=== PATIENT | male | born 1960 | race Caucasian/White ===

== ENCOUNTER 2018-04-03 02:02 | Inpatient (IN) | payer OTHER ==
[~2018-04-03] VITALS: Ht 167.6 cm; Wt 69.9 kg
[2018-04-03 02:05] VITALS: BP 137/90
--- NOTE | 2018-04-03 02:08 | NUR ---
TO BED # 4 AMBULATORY , REPORT GIVEN TO ALEJO ALVA
--- NOTE | 2018-04-03 02:13 | NUR ---
Dr. Lafleur evaluating patient at bedside.
[2018-04-03] MEDS ORDERED: NACL 0.9% 1,000 ML IV ONE (02:20)
[2018-04-03] MEDS ORDERED: ONDANSETRON 4 MG/2 ML VIAL IVP ONE (02:20)
[2018-04-03] MEDS ORDERED: KETOROLAC 30 MG/ML VIAL IVP ONE (02:20)
[2018-04-03 02:50] LABS: ALBUMIN 4.6 g/dL (3.4-5.0); ANION GAP 12.8 (8-16); CARBON DIOXIDE 26.4 mmol/L (21-32); CREATININE 1.4 mg/dL (0.7-1.3); POTASSIUM 4.2 mmol/L (3.5-5.1); TOTAL BILIRUBIN 0.5 mg/dL (0.0-1.0)
--- NOTE | 2018-04-03 03:01 | NUR ---
PT TAKEN TO CT
--- NOTE | 2018-04-03 03:12 | NUR ---
PT RETURN FROM CT
[2018-04-03 03:18] LABS: BASOPHILS % (AUTO) 0.1 % (0.0-2.0); EOSINOPHILS % (AUTO) 0.1 % (0.0-4.0); HEMATOCRIT 44.5 % (36-52); HEMOGLOBIN 15.1 g/dL (12.0-18.0); LYMPHOCYTES # (AUTO) 0.8 K/uL (2.0-11.5); MEAN CORPUSCULAR HEMOGLOBIN 30 pg (27-31); MEAN CORPUSCULAR HGB CONC 34 g/dL (33-37); MEAN CORPUSCULAR VOLUME 89.8 fL (80-94); MONOCYTES # (AUTO) 0.1 K/uL (0.8-1.0); NEUTROPHILS # (AUTO) 12.7 K/uL (1.8-7.7); NEUTROPHILS % (AUTO) 92.9 % (42.2-75.2); PLATELET COUNT (AUTO) 167 K/uL (140-450); RED BLOOD CELL COUNT(AUTO) 4.96 MIL/uL (4.20-6.10); RED CELL DISTRIBUTION WIDTH 13.3 % (11.6-13.7); WHITE BLOOD COUNT (AUTO) 13.6 K/uL (4.8-10.8)
[2018-04-03 03:21] LABS: LYMPHOCYTES % (AUTO) 5.9 % (20.5-51.1)
--- NOTE | 2018-04-03 03:23 | NUR ---
X-Ray at bedside.
--- NOTE | 2018-04-03 03:39 | NUR ---
Pt states pain down to a 3/10 and states nausea gone. Sitting up in bed smiling and talking with .
[2018-04-03] MEDS ORDERED: metroNIDAZOLE 500 MG/NS PREMIX 100 ML IV ONE (03:40)
--- NOTE | 2018-04-03 05:09 | NUR ---
Resting and awaiting transfer to [facility]. No changes in assessment.
[2018-04-03] MEDS ORDERED: LORazepam 2 MG/ML VIAL IVP PRN (05:10)
--- NOTE | 2018-04-03 05:23 | NUR ---
Patient will be admitted to care of Dr Borja. Admited to [facility]. Will go to room 108A. Belongings list completed. Report to ARTIE Bailey.
[2018-04-03] MEDS: DEXT 5% /NACL 0.9% 1,000 ML IV SCH ×2 (05:37→15:28)
--- NOTE | 2018-04-03 05:40 | NUR ---
ADMITTED PATIENT TO THE MED-SURG UNIT. PATIENT AWAKE ALERT SPEAK A LITTLE BIT [place]. AT THE BEDSIDE. NO S/S OF DISTRESS NOTED, VITAL SIGNS STABLE, IV PATENT AND INTACT. EDUCATED PATIENT REGARDING THE SAFETY PRECAUTION, CALL LIGHT WITHIN REACH, SAFETY MEASURE ENSURED, WILL CONTINUE TO MONITOR.
[2018-04-03 06:10] VITALS: BP 110/68
--- NOTE | 2018-04-03 07:19 | NUR ---
ENDORSED PLAN OF CARE TO DAY SHIFT RN, PATIENT IS IN STABLE CONDITION.
--- NOTE | 2018-04-03 08:15 | NUR ---
TOOK THE ADMISSION HX FROM DAUGHTER OF THE PT. HE IS COOK ISLANDER SPEAKING ONLY. NO SIGN OF DIATRESS AT THIS TIME. ADMITTED FOR CC OF ABD PAIN AND VOMITING AND DX IS INTESTINAL OBSTRUCTION. PT UNDER DR STEFF MARIE. PT HAS BEEN NPO. PT VS WERE NOTED 98.1, HR 65, BP 125/85, RR 20 , O2 SAT IS 96% ON RA. NO PERSONAL BELONGINGS THAT NEEDS TO BE KEPT WITH SECURITY. PT HAS RT/AC IV 20G,D5 NS INFUSING @ 75 ML/HR. FAMILY AT THE BEDSIDE. WAITING FOR DR. STEFF MARIE TO EXAMINE HIM. CHARGE NURSE AWARE. PT IS ON SEQUENTIAL COMPRESSION DEVICE. WILL CONTINUE TO MONITOR PT.
--- NOTE | 2018-04-03 10:09 | NUR ---
PATIENT HAS BEEN SCREENED AND CATEGORIZED MODERATE NUTRITION RISK. PATIENT WILL BE SEEN WITHIN 3-5 DAYS OF ADMISSION. 04/05/18 04/07/[address]
--- NOTE | 2018-04-03 10:27 | NUR ---
FAXED INITIAL REVIEW TO [facility] [phone] PHONE [phone]
--- NOTE | 2018-04-03 11:30 | NUR ---
CHECKED ON PT. PT IN STABLE CONDITION. NO SIGN OF DISTRESS. FAMILY AT THE BEDSIDE. WANTS TO KNOW WHEN DR WILL BE COMING. CHARGE NURSE NOTIFIED. STATES THAT PT WILL BE SEEN BY MD TODAY. NO TIME KNOWN YET. INFORMED THE FAMILY MEMBERS THAT PT WILL BE SEEN BT MD TODAY.WAITING FOR MD VISIT FOR THE PT. WILL CONTINUE TO MONITOR PT.
--- NOTE | 2018-04-03 13:30 | NUR ---
CHECKED ON PT. PT STATES TO HAVE PAIN MILD PAIN IN HIS STOMACH AREA. NO SIGN OF DISTRESS. PAIN 3/10. DOESN'T WANT ANY PAIN MEDS. ALL SAFETY MEASURE IN PLACE. WILL CONTINUE TO MONITOR PT.
[2018-04-03] MEDS: ONDANSETRON 4 MG/2 ML VIAL IVP PRN ×2 (14:13→18:34)
--- NOTE | 2018-04-03 14:16 | NUR ---
PT ADMINISTERED ZOFRAN FOR PT FEELING NAUSEATED . PT COMPLAINS OF PAIN AROUND ABDOMEN 3/10. DOESN'T WANTS ANY MEDS FOR PAIN. WAITING FOR DR STEFF MARIE TO COME AND SEE THE PT. FAMILY AT THE BEDSIDE. WILL CONTINUE TO MONITOR PT.
--- NOTE | 2018-04-03 15:26 | NUR ---
Trimmer Operator Three Knife Note: Per patient, he does not have an existing Advance Directive. I provided him with education on Advance Directive and a blank Advance Directive.
--- NOTE | 2018-04-03 15:37 | NUR ---
PAGED DR MARIE REGARDING PT COMPLAINING ABDOMINAL PAIN. WAITING FOR HIS CALL.
--- NOTE | 2018-04-03 15:41 | NUR ---
GOT CALL BACK FROM DR STEFF MARIE. INFORMED HIM ABT PT ABDOMINAL PAIN. PT IN NPO STATE. GOT TORB FOR PAIN. FOR MODERATE PAIN , MORPHINE 1 MG Q6HR, FOR SEVERE PAIN 2 MG Q6HR. READ BACK ORDER TO DOCTOR. WILL ADMINISTER MEDS ORDERED.
[2018-04-03] MEDS ORDERED: MORPHINE SULFATE 2 MG/ML SYR IVP PRN ×3 (15:45→20:00)
[2018-04-03 16:00] VITALS: BP 139/89
--- NOTE | 2018-04-03 17:25 | NUR ---
CHECKED ON PT. PT COMPLAINING OF PAIN IN HIS STOMACH AND GETTING HICCUPS. PT STATES THAT EVERY TIME HE GETS HICCUPS, HIS STOMACH IN NOT IN GOOD CONDITION. CHECKED PT STOMACH. ITS SLIGHT DISTENDED AND PT COMPLAINS PAIN ON LEFT SIDE WHEN PRESSED . PAGED DR STEFF MARIE. WAITING FOR HIS CALL. WILL CONTINUE TO MONITOR PT.
--- NOTE | 2018-04-03 17:34 | NUR ---
CHECKED ONN PT AGAIN. INFORMED THAT I PAGED DR Derek MARIE. PT TRYING TO FORCE HIMSELF TO THROW UP. STATES THAT IT HELPED HIM TO REDUCE HIS DISCOMFORT LAST NIGHT BEFORE HE WAS ADMITTED TO HOSPITAL. PT GIVEN BAG TO VOMIT. WILL CONTINUE TO MONITOR PT.
--- NOTE | 2018-04-03 17:51 | NUR ---
CALLED BACK AND ASKED DR. ANGLIN TO SEE THE PT. DR ANGLIN CAME AND SAW THE PT. DR ANGLIN TO DRDER SOME MEDS AND RUN TEST TO ASSESS THE PT, TO FIND OUT WHAT IS CAUSING SBO. INFORMED PT THAT HE WILL BE MEDICATED WITH NEW MED THAT CAN HELP HIM WITH HIS STOMACH PAIN . DAUGHTER AT BEDSIDE FOR TRANSLATING INFORMATION TO PT. WILL CONTINUE TO MONITOR PT.
--- NOTE | 2018-04-03 18:40 | NUR ---
CHECKED ON PT. HAD VOMIT . ADMINISTERED ZOFRAN ORDERED. DR SABILLON CALLED REGARDING REGLAN ORDER. LEFT HIM VOICE MAIL. WAITING FOR HIS CALL. PT SEEMS LITTLE RELIEVED. INFORMED THAT SURGEON HAS SEEN HIM ALREADY. HAS CONSULT FOR FINISHED GOODS PLANNER. MIGHT BE SEEN TOMORROW. DAUGHTER AT BEDSIDE. OFFERED BLUE BAG FOR VOMITING AND TISSUE PAPER. VERBALIZED UNDERSTANDING. WILL CONTINUE TO MONITOR PT.
--- NOTE | 2018-04-03 19:10 | NUR ---
ENDORSED PT TO PM NURSE. GAVE REPORT. PT IN STABLE CONDITION. FAMILY MEMBER AT THE BEDSIDE.
--- NOTE | 2018-04-03 19:11 | NUR ---
RECEIVED REPORT FROM DAY SHIFT NURSE. AAOX4. FAMILY AT BEDSIDE. NO C/O PAIN AT THIS TIME. NO RESP DISTRESS NOTED. SKIN INTACT. IV TO RIGHT AC #22G, D5NS AT 100 ML/HR, INFUSING WELL. SAFETY PRECAUTION IN PLACE. DISCUSSED PLAN OF CARE, PT AND FAMILY VERBALIZED UNDERSTANDING. CALL LIGHT WITHIN REACH.
--- NOTE | 2018-04-03 19:50 | NUR ---
PT C/O ABDOMINAL PAIN 8/10 SCALE. MORPHINE 2 MG IVP WAS GIVEN AT 1603. PER PT, IT WAS NOT EFFECTIVE. PAGED DR. Isacc MARIE. WAITING FOR CALL BACK.
--- NOTE | 2018-04-03 19:57 | NUR ---
RECEIVED A CALL FROM DR. Isacc MARIE. ORDERED MORPHINE 4 MG IVP Q4HRS FOR SEVERE PAIN AND MORPHINE 2 MG IVP Q4HRS FOR MODERATE PAIN.
[2018-04-03] MEDS: MORPHINE SULFATE 4 MG/ML SYR IVP PRN (20:18)
--- NOTE | 2018-04-03 20:18 | NUR ---
MORPHINE 4 MG IVP GIVEN. PT TOLERATED WELL.
--- NOTE | 2018-04-03 21:00 | NUR ---
PT SLEEPING BUT AROUSABLE. FAMILY AT BEDSIDE. NO DISTRESS NOTED.
[2018-04-04] VITALS: BP 150/84
[2018-04-04] MEDS: ONDANSETRON 4 MG/2 ML VIAL IVP PRN ×2 (00:21→08:23)
[2018-04-04] MEDS: MORPHINE SULFATE 4 MG/ML SYR IVP PRN ×2 (00:22→08:23)
--- NOTE | 2018-04-04 00:23 | NUR ---
PT C/O NAUSEA AND ABDOMINAL PAIN 7/10 SCALE. MORPHINE 4 MG IVP GIVEN FOR PAIN AND ZOFRAN 4 MG IVP FOR NAUSEA.
--- NOTE | 2018-04-04 01:30 | NUR ---
PT SLEEPING. NO S/S OF PAIN. NO RESP DISTRESS NOTED.
[2018-04-04] MEDS: DEXT 5% /NACL 0.9% 1,000 ML IV SCH ×3 (01:37→21:31)
--- NOTE | 2018-04-04 03:45 | NUR ---
PT IN BED, AWAKE. NO C/O PAIN AT THIS TIME. CALL LIGHT WITHIN REACH.
--- NOTE | 2018-04-04 05:50 | NUR ---
PT SLEEPING BUT EASILY AROUSABLE. NO S/S OF PAIN. NO RESP DISTRESS NOTED.
--- NOTE | 2018-04-04 07:10 | NUR ---
ENDORSED PT TO DAY SHIFT NURSE. PT IN STABLE CONDITION.
--- NOTE | 2018-04-04 07:11 | NUR ---
RECEIVED REPORT FROM NATURAL GAS PLANT SUPERVISOR NURSE. PATIENT SITTING IN BED COMFORTABLY. PAIN WITHIN TOLERABLE AT THIS TIME. RESPIRATIONS EVEN, UNLABORED, ON ROOM AIR. AAOX4, CALM, COOPERATIVE, SKIN COLOR APPROPRIATE TO ETHNICITY, WARM TO TOUCH. SKIN IS INTACT. DENIES ANY NAUSEA/VOMITING OVERNIGHT AND NONE REPORTED BY NIGHT RN. IV SITE INTACT, PATENT, AND INFUSING IVF PER MD ORDERS. LUNGS CTA ON ALL LOBES. ABDOMEN SOFT. REVIEWED PLAN OF CARE WITH PATIENT. PATIENT VERBALIZED UNDERSTANDING. SAFETY MEASURES IN PLACE, CALL LIGHT WITHIN REACH. WILL CONTINUE TO MONITOR.
[2018-04-04 07:32] LABS: BASOPHILS % (AUTO) 0.1 % (0.0-2.0); EOSINOPHILS % (AUTO) 0.1 % (0.0-4.0); HEMATOCRIT 42.5 % (36-52); HEMOGLOBIN 14.1 g/dL (12.0-18.0); LYMPHOCYTES % (AUTO) 21.8 % (20.5-51.1); MEAN CORPUSCULAR HEMOGLOBIN 30 pg (27-31); MEAN CORPUSCULAR HGB CONC 33 g/dL (33-37); MEAN CORPUSCULAR VOLUME 91.8 fL (80-94); MONOCYTES # (AUTO) 0.6 K/uL (0.8-1.0); MONOCYTES % (AUTO) 6.4 % (1.7-9.3); NEUTROPHILS # (AUTO) 6.5 K/uL (1.8-7.7); NEUTROPHILS % (AUTO) 71.6 % (42.2-75.2); PLATELET COUNT (AUTO) 177 K/uL (140-450); RED BLOOD CELL COUNT(AUTO) 4.63 MIL/uL (4.20-6.10); RED CELL DISTRIBUTION WIDTH 13.6 % (11.6-13.7); WHITE BLOOD COUNT (AUTO) 9.1 K/uL (4.8-10.8)
[2018-04-04 08:00] VITALS: BP 155/94
[2018-04-04 08:12] LABS: MAGNESIUM 1.8 mg/dL (1.8-2.4); PHOSPHORUS 3.5 mg/dL (2.5-4.9)
[2018-04-04 08:14] LABS: ANION GAP 11.7 (8-16); CARBON DIOXIDE 25.2 mmol/L (21-32); CREATININE 1.3 mg/dL (0.7-1.3); POTASSIUM 3.9 mmol/L (3.5-5.1)
--- NOTE | 2018-04-04 08:25 | NUR ---
PATIENT AMBULATED AROUND [facility] HALLWAYS WITH STEADY GAIT. PATIENT BACK TO BED WITH COMPLAINTS OF 7/10 ABDOMINAL PAIN AND NAUSEA. MORPHINE AND ZOFRAN GIVEN PER MD ORDERS. SAFETY MEASURES IN PLACE, CALL LIGHT WITHIN REACH. WILL CONTINUE TO MONITOR.
--- NOTE | 2018-04-04 09:25 | NUR ---
PATIENT LYING IN BED TALKING WITH FAMILY MEMBERS AT BEDSIDE. DENIES ANY NAUSEA/VOMITING AT THIS TIME. PAIN WITHIN TOLERABLE WILL CONTINUE TO MONITOR.
--- NOTE | 2018-04-04 11:00 | NUR ---
PATIENT LYING DOWN IN BED TALKING WITH FAMILY MEMBERS AT BEDSIDE. NO DISTRESS NOTED. DENIES ANY PAIN AT THIS TIME. SAFETY MEASURES IN PLACE, CALL LIGHT WITHIN REACH. WILL CONTINUE TO MONITOR.
--- NOTE | 2018-04-04 13:55 | NUR ---
PATIENT SITTING IN BED WATCHING TV. NO DISTRESS NOTED. DENIES ANY PAIN. CONDITION UNCHANGED. SAFETY MEASURES IN PLACE, CALL LIGHT WITHIN REACH. WILL CONTINUE TO MONITOR.
--- NOTE | 2018-04-04 13:57 | NUR ---
RADIOLOGIST AT BEDSIDE PERFORMING SMALL BOWEL FOLLOW THOUGH. WILL CONTINUE TO MONITOR.
[2018-04-04 16:00] VITALS: BP 129/89
--- NOTE | 2018-04-04 17:01 | NUR ---
PATIENT REPORT HAVING SMALL BM X2 WITH ROUND, BALL SHAPED BM COMING OUT EACH TIME. DENIES ANY NAUSEA/VOMITING. DENIES ANY PAIN. WILL CONTINUE TO MONITOR.
--- NOTE | 2018-04-04 18:40 | NUR ---
PATIENT SITTING AT BEDSIDE WITH FAMILY MEMBERS AT BEDSIDE. NO DISTRESS NOTED. DENIES ANY PAIN. CONDITION. UNCHANGED. WILL CONTINUE TO MONITOR.
--- NOTE | 2018-04-04 19:25 | NUR ---
RECEIVED REPORT FROM DAY SHIFT NURSE AT PT BEDSIDE. PT IN STABLE CONDITION. PT IS A/O X4. SKIN IS INTACT. IV ACCESS IN R AC 22G WITH D5NS AT 100ML/HR. IV IS INTACT AND PATENT. FAMILY IS AT BEDSIDE. PT HAS NO C/O OF PAIN AT THIS TIME. BED LOCKED, LOWEST POSITION WITH SIDE RAILS UP X2. BOARD UPDATED. WILL CONTINUE TO MONITOR PT.
--- NOTE | 2018-04-04 19:25 | NUR ---
GAVE REPORT TO CHECKROOM ATTENDANT NURSE FOR CONTINUITY OF CARE. PATIENT IN STABLE CONDITION.
--- NOTE | 2018-04-04 21:31 | NUR ---
NEW BAG OF IV FLUIDS STARTED. PT RESTING IN BED COMFORTABLY. NO SIGNS OF DISTRESS. WILL CONTINUE TO MONITOR PT.
--- NOTE | 2018-04-04 23:06 | NUR ---
PT IS ASLEEP IN BED. NO S/SX OF DISTRESS. WILL CONTINUE TO MONITOR PT.
[2018-04-05] VITALS: BP 130/82
--- NOTE | 2018-04-05 01:32 | NUR ---
PT IS ASLEEP IN BED. NO S/SX OF DISTRESS. WILL CONTINUE TO MONITOR.
--- NOTE | 2018-04-05 04:00 | NUR ---
PT AWAKE IN BED. NO C/O PAIN. NO S/SX OF DISTRESS. WILL CONTINUE TO MONITOR.
--- NOTE | 2018-04-05 05:54 | NUR ---
NO CHANGE IN CONDITION. WILL CONTINUE TO MONITOR PT.
--- NOTE | 2018-04-05 07:18 | NUR ---
ENDORSED PT TO DAY SHIFT NURSE AT BEDSIDE. PT IN STABLE CONDITION.
--- NOTE | 2018-04-05 07:19 | NUR ---
RECEIVED REPORT FROM PROGRAM ASSOCIATE NURSE. PATIENT SITTING IN BED COMFORTABLY. NO DISTRESS NOTED. DENIES ANY PAIN. ABLE TO AMBULATE AROUND [facility] HALLWAYS WITH STEADY GAIT. NO REPORTS OF HAVING NAUSEA/VOMITING THROUGHOUT NIGHTTIME. HAS 2 BM YESTERDAY. AAOX4, CALM, COOPERATIVE, SKIN COLOR APPROPRIATE TO ETHNICITY, WARM TO TOUCH. SKIN IS INTACT. IV SITE INTACT, PATENT, AND INFUSING IVF PER MD ORDERS. REVIEWED PLAN OF CARE WITH PATIENT. PATIENT VERBALIZED UNDERSTANDING. SAFETY MEASURES IN PLACE, CALL LIGHT WITHIN REACH. WILL CONTINUE TO MONITOR.
[2018-04-05 07:49] LABS: ANION GAP 11.2 (8-16); CARBON DIOXIDE 24.3 mmol/L (21-32); CREATININE 1.2 mg/dL (0.7-1.3); POTASSIUM 3.5 mmol/L (3.5-5.1)
[2018-04-05 08:00] VITALS: BP 130/80
--- NOTE | 2018-04-05 09:32 | NUR ---
PATIENT LYING DOWN IN BED COMFORTABLY. NO DISTRESS NOTED. DENIES ANY PAIN. AWAITING FOR DR. MARIE TO COME. SAFETY MEASURES IN PLACE, CALL LIGHT WITHIN REACH. WILL CONTINUE TO MONITOR.
[2018-04-05] MEDS: DEXT 5% /NACL 0.9% 1,000 ML IV SCH ×2 (10:09→17:10)
--- NOTE | 2018-04-05 11:30 | NUR ---
PATIENT WALKING AROUND [facility] HALLWAYS WITH STEADY GAIT. NO DISTRESS NOTED. DENIES ANY PAIN. DENIES ANY NAUSEA/VOMITING. SAFETY MEASURES IN PLACE, CALL LIGHT WITHIN REACH. WILL CONTINUE TO MONITOR.
--- NOTE | 2018-04-05 13:29 | NUR ---
PATIENT SITTING IN BED TALKING WITH FAMILY MEMBERS AT BEDSIDE. NO DISTRESS NOTED. DENIES ANY PAIN. CONDITION UNCHANGED. WILL CONTINUE TO MONITOR.
--- NOTE | 2018-04-05 15:48 | NUR ---
REPORTS FEELING BLOATED ON ABDOMEN. WILL NOTIFY MD. WILL CONTINUE TO MONITOR.
[2018-04-05 16:00] VITALS: BP 141/84
--- NOTE | 2018-04-05 16:15 | NUR ---
CALLED Derek WEAVER AND DR. ANGLIN AND LEFT MESSAGE ON THEIR PHONE REGARDING PATIENT SMALL BOWEL FOLLOW THROUGH XRAY BEING NEGATIVE. AWAITING FOR CALL BACK. WILL CONTINUE TO MONITOR.
--- NOTE | 2018-04-05 18:30 | NUR ---
DR. MARIE, A RETURNED CALL. GAVE UPDATES ON PATIENT REGARDING SMALL BOWEL OBSTRUCTION BEING NEGATIVE AND THE PATIENT HAVING BM. PATIENT DENYING ANY ABD PAIN AND NAUSEA/VOMITING. DR. MARIE, Derek REPORT OK TO DISCHARGE PATIENT AND FOLLOW-UP WITH HIM WITHIN 1 WEEK. NOTIFIED PATIENT WITH DAUGHTER TRANSLATING AT BEDSIDE PER PATIENT PREFERS. PATIENT VERBALIZED UNDERSTANDING AND IS ALRIGHT WITH GOING HOME TONIGHT. WILL GET DISCHARGE PAPERWORK READY. WILL CONTINUE TO MONITOR.
--- NOTE | 2018-04-05 19:05 | NUR ---
PROVIDED DISCHARGE INSTRUCTIONS TO PATIENT IN CHINESE, COMMUNITY RELATIONS DIRECTOR SERVICES OFFERED FOR RUSSIAN, BUT PATIENT PREFERRED DAUGHTER AT BEDSIDE TO TRANSLATE. INSTRUCTIONS REGARDING FOLLOW-UP WITH PCP, DIET REGIMEN, NEW/CHANGED MEDICATIONS, AND DISEASE PROCESS/MANAGEMENT OF SMALL BOWEL OBSTRUCTION AND DIVERTICULOSIS. ANSWERED ALL OF PATIENT/DAUGHTER;S QUESTIONS REGARDING DISCHARGE. PATIENT/DAUGHTER VERBALIZED UNDERSTANDING. ALL BELONGINGS WITH PATIENT. IV SITE REMOVED WITH MINIMAL BLOOD AND LUMEN COMPLETELY INTACT. ID BANDS REMOVED. ESCORTED PATIENT DOWN TO LOBBY VIA STEADY AMBULATION. PATIENT DISCHARGED AT THIS TIME TO HOME IN PRIVATE VEHICLE IN STABLE CONDITION.
== END 2018-04-05 19:10 | disposition home or self-care (01) | DRG 388 ==
LOC: MED 02:02 → MTU 05:12
PROVIDERS: ADMIT Preventive Medicine Preventive Medicine/Occupational Environmental Medicine; ATTEND Preventive Medicine Preventive Medicine/Occupational Environmental Medicine
DX: K56.50 Intestinal adhesions [bands], unspecified as to partial versus complete obstruction (principal); N17.0 Acute kidney failure with tubular necrosis; I25.10 Atherosclerotic heart disease of native coronary artery without angina pectoris; D72.829 Elevated white blood cell count, unspecified; R73.9 Hyperglycemia, unspecified
CPT/HCPCS: 36415; 71045; 74018; 74250; 80048; 80053; 83605; 83690; 83735; 84100; 84484; 85025; 85651; 86140; 87040; 87081; 93005; 96365; 96375; 99285; J1885; J2270; J2405; J3490; J7030; J7042; Q0092

== ENCOUNTER 2018-04-08 01:49 | Inpatient (IN) | payer OTHER ==
[~2018-04-08] VITALS: Ht 167.6 cm; Wt 69.9 kg
[2018-04-08 01:51] VITALS: BP 131/88
--- NOTE | 2018-04-08 02:15 | NUR ---
PATIENT TO ER BED 12.
[2018-04-08] MEDS ORDERED: DICYCLOMINE 20 MG/2 ML VIAL IM ONE (02:20)
--- NOTE | 2018-04-08 02:30 | NUR ---
PATIENT IS A 57 Y/O MALE WHO PRESENTS TO THE ED C/O ABD PAIN. PT STATES IT HAS BEEN GOING ON X5 DAYS. PT REPORTS 7/10 ACHING DIFFUSE ABD PAIN THAT DOES NOT RADIATE. PT DENIES CP, SOB, REPORTS NAUSEA DENIES VOMITING/DIARRHEA. PT AWAKE AND ALERT, RR EVEN/UNLABORED. PT REPOSITIONED FOR COMFORT, BED IN LOWEST POSITION. ER MD DR. FRENCH NOTIFIED. WILL CONTINUE TO MONITOR.
[2018-04-08 02:35] LABS: APPEARANCE,URINE CLEAR (CLEAR); BILIRUBIN,URINE NEGATIVE (NEGATIVE); BLOOD, URINE NEGATIVE (NEGATIVE); COLOR,URINE YELLOW (YELLOW); LEUKOCYTE ESTERASE ,URINE NEGATIVE (NEGATIVE); NITRITE, URINE NEGATIVE (NEGATIVE); PH,URINE 5.5 (5.0-9.0); UGLUCOSE NEGATIVE (NEGATIVE)
[2018-04-08 02:51] LABS: HEMATOCRIT 40.7 % (36-52); MEAN CORPUSCULAR HEMOGLOBIN 31 pg (27-31); MEAN CORPUSCULAR HGB CONC 35 g/dL (33-37); MEAN CORPUSCULAR VOLUME 89.7 fL (80-94); PLATELET COUNT (AUTO) 176 K/uL (140-450); RED BLOOD CELL COUNT(AUTO) 4.53 MIL/uL (4.20-6.10); RED CELL DISTRIBUTION WIDTH 12.2 % (11.6-13.7); WHITE BLOOD COUNT (AUTO) 6.9 K/uL (4.8-10.8)
[2018-04-08 02:52] LABS: BASOPHILS # (AUTO) 0.2 K/uL (0.00-0.22); BASOPHILS % (AUTO) 3.5 % (0.0-2.0); EOSINOPHILS # (AUTO) 0.1 K/uL (0-0.4); EOSINOPHILS % (AUTO) 1.5 % (0.0-4.0); LYMPHOCYTES # (AUTO) 1.4 K/uL (2.0-11.5); LYMPHOCYTES % (AUTO) 20.5 % (20.5-51.1); MONOCYTES # (AUTO) 0.4 K/uL (0.8-1.0); MONOCYTES % (AUTO) 6.1 % (1.7-9.3); NEUTROPHILS # (AUTO) 4.8 K/uL (1.8-7.7); NEUTROPHILS % (AUTO) 68.4 % (42.2-75.2)
[2018-04-08 02:54] LABS: ALBUMIN 4.4 g/dL (3.4-5.0); ANION GAP 13.3 (8-16); CARBON DIOXIDE 26.7 mmol/L (21-32); CREATININE 1.3 mg/dL (0.7-1.3); TOTAL BILIRUBIN 0.5 mg/dL (0.0-1.0)
--- NOTE | 2018-04-08 02:54 | NUR ---
PATIENT TAKEN TO CT VIA WHEELCHAIR WITH TECH.
--- NOTE | 2018-04-08 03:07 | NUR ---
PATIENT RETURN FROM CT.
[2018-04-08] MEDS ORDERED: NACL 0.9% 2,000 ML IV ONE (03:25)
[2018-04-08] MEDS ORDERED: fentaNYL 0.05 MG/ML VIAL IVP ONE (03:50)
[2018-04-08] MEDS ORDERED: KETOROLAC 30 MG/ML VIAL IVP ONE (03:50)
--- NOTE | 2018-04-08 04:50 | NUR ---
PATIENT RESTING AT THIS TIME. NO SIGNS OF DISTRESS.
--- NOTE | 2018-04-08 05:22 | NUR ---
Patient will be admitted to care of DR. Isacc MARIE. Admited to M/S. Will go to rooM 106A. Belongings list completed. Report to JENNIFER ALVA.
--- NOTE | 2018-04-08 05:25 | NUR ---
PT ARRIVED AT UNIT VIA GURNEY, PT AMBULATED TO BED, NO DISTRESS NOTED, TOLERATED WELL, REPORT RECEIVED FROM ED NURSE JOSE ANTONIO RN, PT STABLE, IV TO RAC 28G, SL PATENT, INTACT, PT ON ROOM AIR, NO SOB, NG TUBE IN PLACE, CONNECTED TO INTERMITTENT LOW SUCTION, PT STATED FEELING NO PAIN AT THIS MOMENT, MRSA SWAB TAKEN, ORIENT PT TO ROOM, INITIAL ASSESSMENT DONE, ALL SAFETY PRECAUTION MET, WILL CONTINUE TO MONITOR.
[2018-04-08 05:30] VITALS: BP 136/77
[2018-04-08] MEDS ORDERED: ONDANSETRON 4 MG/2 ML VIAL IVP PRN (06:35)
--- NOTE | 2018-04-08 07:38 | NUR ---
ENDORSED PT TO DAY SHIFT NURSE TUTU RN, PT STABLE, NO DISTRESS NOTED, CALL LIGHT WITHIN REACH, WILL CONTINUE TO MONITOR.
--- NOTE | 2018-04-08 07:39 | NUR ---
RECEIVED REPORT FROM MEDICAL PATHOLOGY TEACHER RN. PATIENT IS AAOX4, HAS NO SIGNS AND SYMPTOMS OF ACUTE DISTRESS NOTED AT THIS TIME. PATIENT HAS NG-TUBE IN THE RIGHT NARE ON INTERMITTENT SUCTION. HAS IV TO THE RIGHT AC 18G, SALINE LOCK AT THIS TIME. HE IS COMPLAINING OF ABDOMINAL PAIN. WILL ADMINISTER MEDICATIONS. DISCUSSED PLAN OF CARE WITH PATIENT AND HE VERBALIZED UNDERSTANDING. BED IN LOWEST POSITION, SIDE RAILS UP X2, CALL LIGHT WITHIN REACH. WILL CONTINUE TO MONITOR.
[2018-04-08] MEDS: MORPHINE SULFATE 2 MG/ML SYR IVP PRN ×3 (08:08→20:27)
--- NOTE | 2018-04-08 10:30 | NUR ---
ADVANCED PATIENTS NG TUBE 5 CM DUE TO RESULTS OF CHEST XRAY STATING IT COULD BE ADVANCED 4-5 MORE CENTIMETERS. PATIENT TOLERATED WELL. KEPT OFF SUCTION FOR XR BOWEL FOLLOW THROUGH STUDY.
[2018-04-08] MEDS ORDERED: PIPER/TAZO 2.25GM/D5W PREMIX 50 ML IV SCH (13:00)
--- NOTE | 2018-04-08 13:30 | NUR ---
FAXED INITIAL REVIEW TO [facility] PHYSICIAN [phone] PHONE BRIDGETTE [phone]
--- NOTE | 2018-04-08 14:53 | NUR ---
PATIENT HAS BEEN SCREENED AND CATEGORIZED HIGH NUTRITION RISK. PATIENT WILL BE SEEN WITHIN 1-2 DAYS OF ADMISSION. 04/08/18 04/09/[address]
--- NOTE | 2018-04-08 15:07 | NUR ---
04/08/18 RD INITIAL ASSESSMENT COMPLETED PLEASE REFER TO NUTRITION ASSESSMENT UNDER CARE ACTIVITY FOR ESTIMATED NUTRITIONAL NEEDS. 1. CONTINUE NPO MEDICALLY APPROPRIATE 2. IF/WHEN MEDICALLY STABLE CONSIDER ENTERAL NUTRITION VIA NGT WITH VITAL AF @ GOAL RATE 60 ML/HR. THIS WILL PROVIDE 1440 ML, 1728 KCAL, 108 GM PROTEIN, MEETING 100% OF ESTIMATED NEEDS. 3. IF/WHEN PATIENT IS MEDICALLY STABLE FOR PO DIET, CONSIDER REGULAR DIET TOLERATED 4. RD TO FOLLOW-UP 2-3 DAYS, HIGH RISK INGRID AKHTAR RD
[2018-04-08 16:00] VITALS: BP 128/87
--- NOTE | 2018-04-08 19:23 | NUR ---
ENDORSED PATIENT TO DELIVERY COORDINATOR RN FOR CONTINUITY OF CARE. PATIENT IN STABLE CONDITION.
--- NOTE | 2018-04-08 19:25 | NUR ---
RECEIVED REPORT FROM DAY SHIFT NURSE. AAOX4. FAMILY AT BEDSIDE. PT HAS NG TUBE ON RIGHT NARES. NO RESP DISTRESS NOTED. ON ROOM AIR. NO C/O PAIN AT THIS TIME. IV TO RIGHT AC #18G, PATENT AND INTACT. SAFETY PRECAUTION IN PLACE. CALL LIGHT WITHIN REACH.
[2018-04-08] MEDS: POTASSIUM CHL 20MEQ/D5-NS 1,000 ML IV SCH ×2 (19:55→23:00)
--- NOTE | 2018-04-08 20:30 | NUR ---
PT C/O ABDOMINAL PAIN 7/10 SCALE. MORPHINE 2 MG IVP GIVEN ORDERED.
[2018-04-08] MEDS: PIPER/TAZO 2.25GM/D5W PREMIX 50 ML IV SCH (21:00)
--- NOTE | 2018-04-08 23:00 | NUR ---
PT C/O PAIN IN HIS THROAT AND WANTS TO REMOVE THE NG TUBE. WILL PAGE DR. Isacc MARIE.
--- NOTE | 2018-04-08 23:05 | NUR ---
PAGED DR. Isacc MARIE. WAITING FOR CALL BACK.
--- NOTE | 2018-04-08 23:30 | NUR ---
PAGED DR. Isacc MARIE AGAIN, NO CALL BACK. HEALTH SPA MANAGER MADE AWARE. SHE WILL TRY TO CALL DR. Isacc MARIE.
--- NOTE | 2018-04-08 23:45 | NUR ---
PER HOUSE SUP, DR. Ariadna MARIE IS COVERING FOR DR. Isacc MARIE. WILL PAGED DR. Jori MARIE.
--- NOTE | 2018-04-08 23:50 | NUR ---
SPOKE WITH DR. Ariadna MARIE ON THE PHONE. MD MADE AWARE OF PT'S PAIN IN HIS THROAT AND WANTS TO REMOVE THE NG TUBE. MD ORDERED TO D/C NG TUBE AND PUT PT ON CLEAR LIQUID DIET.
[2018-04-09] VITALS: BP 137/87
--- NOTE | 2018-04-09 | NUR ---
REMOVED NGT. PT TOLERATED WELL. NO DISTRESS NOTED.
--- NOTE | 2018-04-09 00:45 | NUR ---
PT IN BED. NO C/O PAIN. NO C/O NAUSEA OR VOMITING. ALL NEEDS MET AT THIS TIME.
--- NOTE | 2018-04-09 01:30 | NUR ---
PT LYING IN BED. NO C/O PAIN AT THIS TIME. NO RESP DISTRESS NOTED.
--- NOTE | 2018-04-09 03:26 | NUR ---
PT SLEEPING BUT AROUSABLE. NO S/S OF PAIN. NO S/S OF DISTRESS NOTED.
[2018-04-09] MEDS: PIPER/TAZO 2.25GM/D5W PREMIX 50 ML IV SCH (05:42)
--- NOTE | 2018-04-09 05:45 | NUR ---
PT SLEEPING BUT EASILY AROUSABLE. RESP EVEN AND UNLABORED. NO S/S OF PAIN.
--- NOTE | 2018-04-09 07:05 | NUR ---
ENDORSED PT TO DAY SHIFT NURSE. PT IN STABLE CONDITION.
--- NOTE | 2018-04-09 07:10 | NUR ---
RECEIVED REPORT FROM FIREPERSON RN. PATIENT IS SLEEPING AT THIS TIME BUT AROUSES EASILY BY NAME. HAS NO SIGNS AND SYMPTOMS OF ACUTE DISTRESS NOTED AT THIS TIME. HAS IV TO THE RIGHT AC 18G, INFUSING D5NS KCL 20MEQ AT 75 ML/HR. SITE IS CLEAN, DRY, PATENT AND INTACT. DISCUSSED PLAN OF CARE WITH PATIENT AND HE VERBALIZED UNDERSTANDING. BED IN LOWEST POSITION, SIDE RAILS UP X2, CALL LIGHT WITHIN REACH. WILL CONTINUE TO MONITOR.
[2018-04-09 08:00] VITALS: BP 130/79
--- NOTE | 2018-04-09 09:10 | NUR ---
DR. Ariadna MARIE CAME AND SPOKE WITH PATIENT. PATIENT EXPRESSED CONCERNS OVER WANTING TO GET POSSIBLE EGD DONE. DR MARIE AGREED. NO FURTHER QUESTIONS OR CONCERNS AT THIS TIME. WILL CONTINUE TO MONITOR.
[2018-04-09 09:50] LABS: ALBUMIN 3.3 g/dL (3.4-5.0); ANION GAP 9.7 (8-16); CARBON DIOXIDE 26.4 mmol/L (21-32); CREATININE 1.2 mg/dL (0.7-1.3); POTASSIUM 4.1 mmol/L (3.5-5.1); TOTAL BILIRUBIN 0.6 mg/dL (0.0-1.0)
[2018-04-09 09:58] LABS: HEMATOCRIT 37.4 % (36-52); HEMOGLOBIN 12.6 g/dL (12.0-18.0); MEAN CORPUSCULAR HEMOGLOBIN 30 pg (27-31); MEAN CORPUSCULAR HGB CONC 34 g/dL (33-37); MEAN CORPUSCULAR VOLUME 89.6 fL (80-94); PLATELET COUNT (AUTO) 169 K/uL (140-450); RED BLOOD CELL COUNT(AUTO) 4.18 MIL/uL (4.20-6.10); RED CELL DISTRIBUTION WIDTH 12.2 % (11.6-13.7); WHITE BLOOD COUNT (AUTO) 6.1 K/uL (4.8-10.8)
[2018-04-09 09:59] LABS: BASOPHILS % (AUTO) 0.9 % (0.0-2.0); EOSINOPHILS % (AUTO) 2.2 % (0.0-4.0); MONOCYTES % (AUTO) 7.9 % (1.7-9.3)
--- NOTE | 2018-04-09 13:41 | NUR ---
clinical review faxed to [facility] [phone]
--- NOTE | 2018-04-09 15:47 | NUR ---
1513 CALL PLACED TO BRIDGETTE KIM AT [facility] AND INFORMED HER THAT DR NAT MENDEZ IS PLANNING FOR EGD AND COLONOSCOPY TOMORROW SINCE THIS IS SECOND VISIT FOR PT WITHIN A WEEK. BRIDGETTE STATED SHE HAS NOTED THE NOTES FOR LAST VISIT AND PROVIDED AUTH#[id number] FOR VISIT 04/03-04/05/18. BRIDGETTE ALSO STATED WILL NOTE IN HER RECORD THE UPDATE ON POC.
[2018-04-09 16:00] VITALS: BP 127/74
[2018-04-09] MEDS ORDERED: BOWEL EVACUANT DRINK 4,000 ML PDS PO SCH (16:00)
[2018-04-09] MEDS ORDERED: MAGNESIUM CITRATE 300 ML BTL PO SCH (16:00)
[2018-04-09] MEDS: SENNA 8.6 MG TAB PO SCH (17:10)
[2018-04-09] MEDS: LACTULOSE 20 GM/30 ML UDC PO SCH ×2 (17:10→20:05)
--- NOTE | 2018-04-09 19:00 | NUR ---
CONSENT FOR EGD/COLONOSCOPY SIGNED.
--- NOTE | 2018-04-09 19:20 | NUR ---
ENDORSED PATIENT TO ROLLING MILL OPERATOR RN FOR CONTINUITY OF CARE. PATIENT IN STABLE CONDITION.
--- NOTE | 2018-04-09 19:25 | NUR ---
RECEIVED PATIENT AWAKE IN HIGH- FOWLERS POSITION. PATIENT AAOX4, AZERBAIJANI SPEAKING, AMBULATORY. PATIENT ACCOMPANIED BY FAMILY MEMBERS AND DISCUSSED THE PLAN OF CARE.BED IN LOW LOCKED POSITION. CALL LIGHT WITHIN REACH.
--- NOTE | 2018-04-09 21:09 | NUR ---
MEDICATION GIVEN AND TOLERATED WELL.
[2018-04-10] VITALS: BP 120/78
--- NOTE | 2018-04-10 00:12 | NUR ---
V/S TAKEN AND RECORDED. PATIENT WENT TO BATHROOM AND BACK TO BED . BED IN LOW LOCKED POSITION. NO S/S OF DISTRESS NOTED. EXPLAINED TO PATIENT DON"T EAT FOOD AND DRINK WATER. PATIENT VERBALIZED UNDERSTANDING. CALL LIGHT WITHIN REACH. WILL CONTINUE TO MONITOR.
--- NOTE | 2018-04-10 00:57 | NUR ---
PATIENT NAME NOT IN OR DESKTOP BIG BOARD SCHEDULE. CHARGE NURSE AWARE.
--- NOTE | 2018-04-10 02:00 | NUR ---
SEEN PATIENT ASLEEP COMFORTABLY ON BED. NO S/S OF DISTRESS NOTED AT THIS TIME. BED IN POSITION. CALL LIGHT WITHIN REACH.
--- NOTE | 2018-04-10 04:00 | NUR ---
CHECKED PATIENT ASLEEP COMFORTABLY ON BED. NO S/S OF DISTRESS NOTED. BED IN LOW LOCKED POSITION. CALL LIGHT WITHIN REACH.
--- NOTE | 2018-04-10 07:05 | NUR ---
RECEIVED BEDSIDE REPORT FROM BAND STRAIGHTENER NURSE JULIA PT IN BED NO SIGNS OF DISTRESS, ALERT AND ABLE TO MAKE NEEDS KNOWN. IV IN L AC INFUSING KCL AT 50 ML/HR, WILL CHANGE DRESSING AND SECURE WITH TAPE, V/S TAKEN ALL WITHIN PTS BASELINE, NO C/O PAIN, ABDOMEN SOFT NON-TENDER, UPDATED BOARD, EXPLAINED PLAN OF CARE. CALL LIGHT WITHIN REACH.
--- NOTE | 2018-04-10 07:05 | NUR ---
ENDORSEMENT GIVEN TO AM SHIFT NURSE AT BEDSIDE FOR CONTINUITY OF CARE. PATIENT IN STABLE CONDITION.
[2018-04-10 08:00] VITALS: BP 126/84
[2018-04-10] MEDS: SENNA 8.6 MG TAB PO SCH ×2 (09:16→13:35)
[2018-04-10] MEDS: LACTULOSE 20 GM/30 ML UDC PO SCH ×2 (09:17→13:35)
--- NOTE | 2018-04-10 09:26 | NUR ---
CONSENT FOR EGD AND COLONOSCOPY SIGNED AND IN CHART. BOWEL PREP IS COMPLETED.
[2018-04-10 09:27] LABS: BASOPHILS % (AUTO) 0.7 % (0.0-2.0); EOSINOPHILS # (AUTO) 0.1 K/uL (0-0.4); EOSINOPHILS % (AUTO) 2.3 % (0.0-4.0); HEMATOCRIT 38.8 % (36-52); HEMOGLOBIN 13.1 g/dL (12.0-18.0); LYMPHOCYTES # (AUTO) 1.6 K/uL (2.0-11.5); LYMPHOCYTES % (AUTO) 40.2 % (20.5-51.1); MEAN CORPUSCULAR HEMOGLOBIN 31 pg (27-31); MEAN CORPUSCULAR HGB CONC 34 g/dL (33-37); MEAN CORPUSCULAR VOLUME 90.5 fL (80-94); MONOCYTES # (AUTO) 0.4 K/uL (0.8-1.0); NEUTROPHILS % (AUTO) 47.8 % (42.2-75.2); PLATELET COUNT (AUTO) 174 K/uL (140-450); RED BLOOD CELL COUNT(AUTO) 4.29 MIL/uL (4.20-6.10); WHITE BLOOD COUNT (AUTO) 4.1 K/uL (4.8-10.8)
--- NOTE | 2018-04-10 09:27 | NUR ---
DUE MEDICATIONS GIVEN TOLERATED WELL. IV DRESSING CHANGED AND SECURED.
[2018-04-10 09:41] LABS: ALBUMIN 3.7 g/dL (3.4-5.0); CARBON DIOXIDE 28.2 mmol/L (21-32); POTASSIUM 4.2 mmol/L (3.5-5.1); TOTAL BILIRUBIN 0.4 mg/dL (0.0-1.0)
--- NOTE | 2018-04-10 10:28 | NUR ---
CM NOTE CONCURRENT REVIEW FAXED TO [facility] [phone] JULIO ANGELES PH# [phone]
--- NOTE | 2018-04-10 10:53 | NUR ---
CALLED PHARMACY REGARDING UN-SCANNED KCL INFUSING AT 50 ML/HR. WILL SCAN BAG AND CONTINUE INFUSING.
[2018-04-10] MEDS: POTASSIUM CHL 20MEQ/D5-NS 1,000 ML IV SCH (11:50)
--- NOTE | 2018-04-10 12:00 | NUR ---
PT RESTING IN BED, WILL GIVE DUE MEDICATIONS, PT REQUESTED TO EAT, EXPLAINED PT HAS TO BE NPO AT THIS TIME, PT STATED "OH OKAY". CALL LIGHT WITHIN REACH WILL CONTINUE TO MONITOR, AT BEDSIDE.
[2018-04-10] MEDS ORDERED: fentaNYL 0.05 MG/ML VIAL ONE ×2 (14:46)
--- NOTE | 2018-04-10 14:46 | NUR ---
PT LEFT VIA GURNEY TO OR. PT ON SL, PT STABLE AT THIS TIME.
[2018-04-10] MEDS ORDERED: MIDAZOLAM 2 MG/2 ML VIAL ONE (14:47)
[2018-04-10] MEDS ORDERED: diphenhydrAMINE 50 MG/ML VIAL ONE (14:47)
--- NOTE | 2018-04-10 15:15 | NUR ---
04/10/18 RD FOLLOW UP COMPLETED PLEASE REFER TO NUTRITION ASSESSMENT UNDER CARE ACTIVITY FOR ESTIMATED NUTRITIONAL NEEDS. 1. CONTINUE NPO MEDICALLY APPROPRIATE 2. IF/WHEN MEDICALLY STABLE, CONSIDER ADVANCING PATIENTS DIET TO BLAND TOLERATED. 3. RD TO FOLLOW-UP 2-3 DAYS, HIGH RISK INGRID AKHTAR, RD
[2018-04-10 16:00] VITALS: BP 122/54
--- NOTE | 2018-04-10 16:15 | NUR ---
PT ARRIVED FROM OR, BEDSIDE REPORT RECEIVED FROM ARTIE JONES, PT STABLE, AWAKE AND ALERT, STATES IS COMFORTABLE AT THIS TIME, VS TAKEN ALL WITH IN PTS BASELINE. WITH START 15 MIN V/S FOR FIRST HOUR AND REPORT ABNORMALITIES TO MD APPROPRIATELY. ON RA, AT BEDSIDE, OFFERED ICE CHIPS, PT TOLERATED WELL, WILL ADVANCE DIET, ENCOURAGED TO EAT TOLERATED. CALL LIGHT WITHIN REACH WILL CONTINUE TO MONITOR.
[2018-04-10 17:50] VITALS: BP 122/82
--- NOTE | 2018-04-10 18:26 | NUR ---
ALL D/C PAPERWORK SIGNED AND IN CHART, ARM BANDS REMOVED, DC IV IN L AC, 18 G, CATH INTACT, APPLIED PRESSURE, BANDAGE APPLIED. D/C IV IN RIGHT WRIST, 22 G, CATH INTACT. PT LEFT WALKING, TOLERATED WELL, PT STABLE.
--- NOTE | 2018-04-13 11:19 | NUR ---
FAXED DISCHARGE [facility];RY TO [facility] [phone]
== END 2018-04-10 18:26 | disposition home or self-care (01) | DRG 392 ==
LOC: MED 01:49 → MMU 05:05 → MTU 05:15
PROVIDERS: ADMIT Preventive Medicine Preventive Medicine/Occupational Environmental Medicine; ATTEND Preventive Medicine Preventive Medicine/Occupational Environmental Medicine
PROC: 0DB68ZX Excision of Stomach, Via Natural or Artificial Opening Endoscopic, Diagnostic (ICD-10-PCS; principal; 2018-04-10 15:50)
PROC: 0DBP8ZZ Excision of Rectum, Via Natural or Artificial Opening Endoscopic (ICD-10-PCS; 2018-04-10 15:50)
DX: K57.30 Diverticulosis of large intestine without perforation or abscess without bleeding (principal); K56.609 Unspecified intestinal obstruction, unspecified as to partial versus complete obstruction; K56.7 Ileus, unspecified; K62.1 Rectal polyp; K64.8 Other hemorrhoids
CPT/HCPCS: 36415; 71045; 74250; 80053; 81003; 83690; 85025; 86677; 87081; 96361; 96372; 96374; 96375; 99285; J0500; J1200; J1885; J2250; J2270; J2543; J3010; J7030; Q0092

== ENCOUNTER 2018-07-13 02:10 | Inpatient (IN) | payer OTHER ==
[~2018-07-13] VITALS: Ht 167.6 cm; Wt 74.4 kg
[2018-07-13 02:26] VITALS: BP 126/90
--- NOTE | 2018-07-13 02:30 | NUR ---
TO LOBBY A/W BED, JUAN TAM, ROD NOTED
--- NOTE | 2018-07-13 03:55 | NUR ---
PATIENT PRESENTS TO ED WITH ABDOMINAL PAIN WITH NAUSEA AND VOMITTING . PT STATES STARTED 10 HRS AGO. SKIN IS PINK/WARM/DRY; AAOX4 WITH EVEN AND STEADY GAIT; LUNGS CLEAR BL; HR EVEN AND REGULAR; PT DENIES ANY FEVER, CP, SOB, OR COUGH AT THIS TIME; PATIENT STATES PAIN OF 10/10 AT THIS TIME; PATIENT POSITIONED FOR COMFORT; HOB ELEVATED; BEDRAILS UP X2; BED DOWN. ER MD MADE AWARE OF PT STATUS.PT RESTING AT THIS TIME, NO NAUSEA AND VOMITTING NOTED AT THIS TIME, WILL ENDORSED TO DEMOND TO CONTINUE CARE.
[2018-07-13] MEDS ORDERED: NACL 0.9% 1,000 ML IV SCH ×2 (04:07→21:55)
[2018-07-13] MEDS ORDERED: PANTOPRAZOLE 40 MG INJ VIAL IVP ONE (04:10)
[2018-07-13] MEDS ORDERED: fentaNYL 0.05 MG/ML VIAL IVP ONE (04:10)
[2018-07-13] MEDS ORDERED: ONDANSETRON 4 MG/2 ML VIAL IVP ONE (04:10)
[2018-07-13 05:00] LABS: BASOPHILS % (AUTO) 0.2 % (0.0-2.0); EOSINOPHILS % (AUTO) 0.2 % (0.0-4.0); HEMATOCRIT 44.2 % (36-52); HEMOGLOBIN 14.9 g/dL (12.0-18.0); LYMPHOCYTES % (AUTO) 9.9 % (20.5-51.1); MEAN CORPUSCULAR HEMOGLOBIN 30 pg (27-31); MEAN CORPUSCULAR HGB CONC 34 g/dL (33-37); MEAN CORPUSCULAR VOLUME 88.6 fL (80-94); MONOCYTES # (AUTO) 0.3 K/uL (0.8-1.0); MONOCYTES % (AUTO) 3.1 % (1.7-9.3); NEUTROPHILS # (AUTO) 8.9 K/uL (1.8-7.7); NEUTROPHILS % (AUTO) 86.6 % (42.2-75.2); PLATELET COUNT (AUTO) 174 K/uL (140-450); RED BLOOD CELL COUNT(AUTO) 4.99 MIL/uL (4.20-6.10); RED CELL DISTRIBUTION WIDTH 13.1 % (11.6-13.7); WHITE BLOOD COUNT (AUTO) 10.3 K/uL (4.8-10.8)
[2018-07-13 05:02] LABS: APPEARANCE,URINE CLEAR (CLEAR); COLOR,URINE YELLOW (YELLOW)
[2018-07-13 05:03] LABS: BILIRUBIN,URINE NEGATIVE (NEGATIVE); BLOOD, URINE NEGATIVE (NEGATIVE); LEUKOCYTE ESTERASE ,URINE NEGATIVE (NEGATIVE); NITRITE, URINE NEGATIVE (NEGATIVE); UGLUCOSE NEGATIVE (NEGATIVE)
--- NOTE | 2018-07-13 05:08 | NUR ---
PT TO CT VIA WC
[2018-07-13 05:09] LABS: RBC,URINE 0-5 (RARE) /HPF (0-5); WBC,URINE 0-5 (RARE) /HPF (0-5)
--- NOTE | 2018-07-13 05:16 | NUR ---
PT RETURNED FROM CT
[2018-07-13 06:04] LABS: ALBUMIN 4.6 g/dL (3.4-5.0); ANION GAP 15.4 (8-16); CARBON DIOXIDE 28.5 mmol/L (21-32); CREATININE 1.1 mg/dL (0.7-1.3); POTASSIUM 3.9 mmol/L (3.5-5.1); TOTAL BILIRUBIN 0.6 mg/dL (0.0-1.0)
--- NOTE | 2018-07-13 07:16 | NUR ---
REPORT GIVEN TO ARTIE TOVAR FOR TRANSFER OF CARE.
--- NOTE | 2018-07-13 07:17 | NUR ---
report given juan rn
--- NOTE | 2018-07-13 07:31 | NUR ---
PT IS AWAKE, RESTING IN BED AT THIS TIME, VSS AT THIS TIME
[2018-07-13] MEDS ORDERED: LIDOCAINE VISCOUS 2% 20 ML UDC PO ONE (08:30)
[2018-07-13] MEDS ORDERED: LIDOCAINE VISCOUS 2% 20 ML UDC ONE (08:35)
--- NOTE | 2018-07-13 08:47 | NUR ---
Mirlande connell in ED - 07/13/18 at 0935 by TON 18 FR NG TUBE PUT IN AT 22 BY BALJINDER ALVA, X-RAY CALLED FOR PLACEMENT
--- NOTE | 2018-07-13 08:50 | NUR ---
16 FR NG TUBE PUT IN AT 22 BY BALJINDER ALVA, X-RAY CALLED FOR PLACEMENT
--- NOTE | 2018-07-13 08:56 | NUR ---
X-RAY AT PT BEDSIDE
[2018-07-13] MEDS ORDERED: DEXT 5% / NACL 0.45% 1,000 ML IV SCH (09:53)
[2018-07-13] MEDS ORDERED: HYDROcodone/APAP 5/325 MG 1 TAB TAB PO PRN (09:55)
[2018-07-13] MEDS ORDERED: ONDANSETRON 4 MG/2 ML VIAL IM/IVP PRN (09:55)
[2018-07-13] MEDS ORDERED: MORPHINE SULFATE 4 MG/ML SYR IVP PRN (09:55)
[2018-07-13] MEDS ORDERED: DOCUSATE SODIUM 100 MG GELCAP PO PRN (09:55)
[2018-07-13] MEDS ORDERED: ACETAMINOPHEN 325 MG TAB PO PRN (09:55)
[2018-07-13] MEDS ORDERED: LORazepam 2 MG/ML VIAL IM/IVP PRN (09:55)
[2018-07-13] MEDS ORDERED: ZOLPIDEM 5 MG TAB PO PRN (09:55)
--- NOTE | 2018-07-13 10:21 | NUR ---
Patient will be admitted to care of DR. MOY. Admited to MED SURG. Will go to room 106-A. Belongings list completed. Report to ARTIE JONES.
--- NOTE | 2018-07-13 10:25 | NUR ---
PATIENT ADMITTED FROM ED ON [facility]. AMBULATORY TO BED. ALERT AND ORIENTED, FOLLOWS COMMANDS. PATIENT HAS NGT IN PLACE CLAMPED. SPOKE WITH PCP, START LIS. NO GASTRIC OUTPUT NOTED. PATIENT ORIENTED TO HOSPITAL ENVIRONMENT, UPDATED ON CURRENT PLAN OF CARE, IN AGREEMENT.
[2018-07-13 10:30] VITALS: BP 117/75
[2018-07-13 11:05] LABS: PROTHROMBIN TIME 9.9 secs (10.8-13.4)
--- NOTE | 2018-07-13 11:20 | NUR ---
H&P DONE AT BEDSIDE BY MD AND SELF WITH SUCTION PLATE ROLLER HAND JOSE #[id number]. PATIENT RESTING IN BED, ALL NEEDS MET.
[2018-07-13 11:23] LABS: MAGNESIUM 2.1 mg/dL (1.8-2.4); PHOSPHORUS 3.7 mg/dL (2.5-4.9); THYROID STIMULATING HORMONE 1.14 uIU/mL (0.34-3.74)
--- NOTE | 2018-07-13 13:10 | NUR ---
PATIENT RETURNED FROM SMALL BOWEL SERIES. NO ACUTE DISTRESS NOTED.
[2018-07-13 16:00] VITALS: BP 133/85
--- NOTE | 2018-07-13 16:11 | NUR ---
PATIENT HAS BEEN SCREENED AND CATEGORIZED MODERATE NUTRITION RISK. PATIENT WILL BE SEEN WITHIN 3-5 DAYS OF ADMISSION. 07/15/18 07/17/[address]
--- NOTE | 2018-07-13 16:38 | NUR ---
NGT REMOVED AT BEDSIDE ORDERED. NO ACUTE DISTRESS NOTED.
--- NOTE | 2018-07-13 18:05 | NUR ---
PATIENT SEEN BY DR. JOHNS AT BEDSIDE. NO NEW ORDERS. PATIENT TO F/U OUTPATIENT AT THIS TIME. PATIENT TOLERATED PO DIET AT BEDSIDE. DENIES N/V. DENIES ABDOMINAL DISCOMFORT. NO ACUTE DISTRESS NOTED.
--- NOTE | 2018-07-13 19:15 | NUR ---
RECEIVED PATIENT RESTING ON BED. EXPLAINED PLAN OF CARE. PATIENT TUVALUAN SPEAKING PATIENT. BED IN LOW LOCKED POSITION. CALL LIGHT WITHIN REACH.
--- NOTE | 2018-07-13 19:15 | NUR ---
SBAR REPORT GIVEN TO NIGHT RN AT PT BEDSIDE. PATIENT RESTING IN BED, NO ACUTE DISTRESS NOTED.
--- NOTE | 2018-07-13 21:00 | NUR ---
CHECKED PATIENT ASLEEP. NO S/S OF DISTRESS. BED IN LOW LOCKED POSITION. WILL CONTINUE TO MONITOR.
[2018-07-14] VITALS: BP 114/74
--- NOTE | 2018-07-14 | NUR ---
CHECKED PATIENT ASLEEP. NO S/S OF DISTRESS. CALL LIGHT WITHIN REACH.
--- NOTE | 2018-07-14 04:00 | NUR ---
SEEN PATIENT ASLEEP COMFORTABLE ON BED. ALL NEEDS ATTENDED.
--- NOTE | 2018-07-14 07:10 | NUR ---
GAVE REPORT TO AM SHIFT RN AT BEDSIDE FOR CONTINUITY OF CARE. PATIENT IN STABLE CONDITION.
--- NOTE | 2018-07-14 07:11 | NUR ---
RECEIVED BEDSIDE REPORT FROM PM SHIFT NURSE. PT ASLEEP, RESPIRATIONS EVEN & UNLABORED. CALL LIGHT WITHIN REACH.
[2018-07-14 08:00] VITALS: BP 117/74
[2018-07-14 08:02] LABS: BASOPHILS % (AUTO) 0.3 % (0.0-2.0); EOSINOPHILS # (AUTO) 0.1 K/uL (0-0.4); EOSINOPHILS % (AUTO) 1.8 % (0.0-4.0); HEMATOCRIT 40.2 % (36-52); HEMOGLOBIN 13.5 g/dL (12.0-18.0); LYMPHOCYTES # (AUTO) 1.9 K/uL (2.0-11.5); LYMPHOCYTES % (AUTO) 38.3 % (20.5-51.1); MEAN CORPUSCULAR HEMOGLOBIN 30 pg (27-31); MEAN CORPUSCULAR HGB CONC 34 g/dL (33-37); MONOCYTES # (AUTO) 0.3 K/uL (0.8-1.0); MONOCYTES % (AUTO) 5.5 % (1.7-9.3); NEUTROPHILS # (AUTO) 2.7 K/uL (1.8-7.7); NEUTROPHILS % (AUTO) 54.1 % (42.2-75.2); PLATELET COUNT (AUTO) 149 K/uL (140-450); RED BLOOD CELL COUNT(AUTO) 4.47 MIL/uL (4.20-6.10); RED CELL DISTRIBUTION WIDTH 13.4 % (11.6-13.7)
[2018-07-14] MEDS ORDERED: DOCU-299 PO (08:20)
[2018-07-14] MEDS ORDERED: LUBI24SG4 PO (08:20)
[2018-07-14 08:24] LABS: WHITE BLOOD COUNT (AUTO) 5.1 K/uL (4.8-10.8)
[2018-07-14 08:27] LABS: ANION GAP 11.6 (8-16); CARBON DIOXIDE 27.5 mmol/L (21-32); CREATININE 0.9 mg/dL (0.7-1.3); POTASSIUM 4.1 mmol/L (3.5-5.1)
[2018-07-14 08:35] LABS: CHOL/HDL RATIO 3.3 (1-4.5)
[2018-07-14] MEDS ORDERED: SENNA 8.6 MG TAB PO SCH (09:00)
--- NOTE | 2018-07-14 09:15 | NUR ---
PT AWAKE, VERBALLY RESPONSIVE, RESPIRATIONS EVEN & UNLABORED. NO C/O PAIN. ABD SOFT WITH ACTIVE BOWEL SOUNDS ON ALL QUADS. DISCHARGE INSTRUCTIONS PROVIDED TO PT WITH USE OF BLUE PHONE PUBLIC INFORMATION COORDINATOR ([employer] #[id number]). PT VERBALIZED UNDERSTANDING.
[2018-07-14] MEDS ORDERED: INFLUENZA VIRUS VACCINE QUAD 0.5 ML SYR IMVAC PRN (10:20)
--- NOTE | 2018-07-14 10:35 | NUR ---
PT LEFT AT THIS TIME, AMB WITH STEADY GAIT. PER PT, HE WILL BE DRIVING HOME. PT DENIES ANY PAIN OR DISCOMFORT. NO SIGNS OF DISTRESS. ALL BELONGINGS WITH PT.
--- NOTE | 2018-07-14 10:59 | NUR ---
CALLED [facility] AND SPOKE WITH BRIDGETTE. SHE SAID TO FAX REVIEW TO HER. ADMISSION CHART REVIEW DONE FAXED INITIAL REVIEW TO [facility] [phone], INCLUDING DISCHARGE SUMMARY. PHONE BRIDGETTE [phone] FAXED INITIAL REVIEW AND DISCHARGE SUMMARY TO [facility] [phone] PHONE [phone]
== END 2018-07-14 10:35 | disposition home or self-care (01) | DRG 389 ==
LOC: MED 02:10 → MTU 09:59
PROVIDERS: ADMIT General Practice; ATTEND General Practice
PROC: 0D9670Z Drainage of Stomach with Drainage Device, Via Natural or Artificial Opening (ICD-10-PCS; principal; 2018-07-13)
DX: K56.699 Other intestinal obstruction unspecified as to partial versus complete obstruction (principal); C20 Malignant neoplasm of rectum; N39.0 Urinary tract infection, site not specified; K57.90 Diverticulosis of intestine, part unspecified, without perforation or abscess without bleeding; I25.10 Atherosclerotic heart disease of native coronary artery without angina pectoris; K64.8 Other hemorrhoids; E66.3 Overweight; Z68.26 Body mass index [BMI] 26.0-26.9, adult; Z87.11 Personal history of peptic ulcer disease; Z80.42 Family history of malignant neoplasm of prostate
CPT/HCPCS: 36415; 43753; 71045; 74022; 74250; 80048; 80053; 81001; 83036; 83690; 83735; 83880; 84100; 84134; 84436; 84443; 84703; 85025; 85610; 85730; 87081; 93005; 96361; 96374; 96375; 99285; C9113; J2270; J2405; J3010; J7030; Q0092

== ENCOUNTER 2018-08-29 05:01 | Inpatient (IN) | payer OTHER ==
[~2018-08-29] VITALS: Ht 167.6 cm; Wt 74.4 kg
[~2018-08-29 05:01] MED LIST: DOCU-299 PO; LUBI24SG4 PO
[2018-08-29 05:11] VITALS: BP 136/78
--- NOTE | 2018-08-29 05:15 | NUR ---
58/M C/O 10/10 MIDABDOMINAL PAIN WITH MULTIPLE N/V SINCE 1800 YESTERDAY. ABD SOFT, ROUND, DIFFUSED TENDERNESS, BS ACTIVE X4. DENIES FEVER/CHILLS, HEMATEMESIS. PMH: DIVERTICULOSIS
--- NOTE | 2018-08-29 05:15 | NUR ---
Pt taken to bed 8.
--- NOTE | 2018-08-29 06:09 | NUR ---
Dr. Escobar evaluating patient at bedside.
[2018-08-29] MEDS ORDERED: NACL 0.9% 1,000 ML IV ONE (06:15)
[2018-08-29] MEDS ORDERED: ONDANSETRON 4 MG/2 ML VIAL IVP ONE (06:15)
[2018-08-29] MEDS ORDERED: MORPHINE SULFATE 4 MG/ML SYR IVP ONE (06:15)
[2018-08-29 06:37] LABS: BASOPHILS % (AUTO) 0.1 % (0.0-2.0); EOSINOPHILS % (AUTO) 0.4 % (0.0-4.0); HEMATOCRIT 45.8 % (36-52); HEMOGLOBIN 15.1 g/dL (12.0-18.0); LYMPHOCYTES # (AUTO) 1.4 K/uL (2.0-11.5); MEAN CORPUSCULAR HEMOGLOBIN 29 pg (27-31); MEAN CORPUSCULAR HGB CONC 33 g/dL (33-37); MEAN CORPUSCULAR VOLUME 89.1 fL (80-94); MONOCYTES # (AUTO) 0.3 K/uL (0.8-1.0); MONOCYTES % (AUTO) 2.5 % (1.7-9.3); NEUTROPHILS # (AUTO) 8.8 K/uL (1.8-7.7); PLATELET COUNT (AUTO) 179 K/uL (140-450); RED BLOOD CELL COUNT(AUTO) 5.14 MIL/uL (4.20-6.10); RED CELL DISTRIBUTION WIDTH 13.4 % (11.6-13.7); WHITE BLOOD COUNT (AUTO) 10.5 K/uL (4.8-10.8)
[2018-08-29 06:45] LABS: ALBUMIN 4.6 g/dL (3.4-5.0); CARBON DIOXIDE 26.9 mmol/L (21-32); CREATININE 1.1 mg/dL (0.7-1.3); POTASSIUM 3.9 mmol/L (3.5-5.1); TOTAL BILIRUBIN 0.5 mg/dL (0.0-1.0)
--- NOTE | 2018-08-29 06:48 | NUR ---
PT UNABLE TO PROVIDE URINE AT THIS TIME
--- NOTE | 2018-08-29 06:48 | NUR ---
PT RETURNED FROM CT
--- NOTE | 2018-08-29 07:17 | NUR ---
Pt report given to SANDRITA ALVA. Transfer of care at this time.
--- NOTE | 2018-08-29 07:53 | NUR ---
PT. RESTING COMFORTABLY IN BED , RR EVEN AND UNLABORED , HOB ELEVATED. VSS. WILL CONTINUE TO MONITOR.
--- NOTE | 2018-08-29 09:00 | NUR ---
PT. RESTING COMFORTABLY IN BED, RR EVEN AND UNLABORED. PT. STATES " I HAVE NO PAIN I FEEL GOOD RIGHT NOW". DENIES ANY N/V AT THIS TIME. HOB ELEVATED WILL CONTINUE TO MONITOR.
[2018-08-29 09:07] LABS: APPEARANCE,URINE CLEAR (CLEAR); BILIRUBIN,URINE NEGATIVE (NEGATIVE); BLOOD, URINE NEGATIVE (NEGATIVE); COLOR,URINE YELLOW (YELLOW); LEUKOCYTE ESTERASE ,URINE NEGATIVE (NEGATIVE); NITRITE, URINE NEGATIVE (NEGATIVE); UGLUCOSE NEGATIVE (NEGATIVE)
[2018-08-29] MEDS ORDERED: LIDOCAINE VISCOUS 2% 20 ML UDC PO ONE (09:55)
--- NOTE | 2018-08-29 10:17 | NUR ---
XRAY AT BEDSIDE AT THIS TIME
[2018-08-29] MEDS ORDERED: ACETAMINOPHEN 325 MG TAB PO PRN (10:20)
[2018-08-29] MEDS ORDERED: HYDROcodone/APAP 5/325 MG 1 TAB TAB PO PRN (10:20)
[2018-08-29] MEDS ORDERED: LORazepam 2 MG/ML VIAL IM/IVP PRN (10:20)
[2018-08-29] MEDS ORDERED: ZOLPIDEM 5 MG TAB PO PRN (10:20)
[2018-08-29] MEDS ORDERED: ONDANSETRON 4 MG/2 ML VIAL IM/IVP PRN (10:20)
[2018-08-29] MEDS ORDERED: DOCUSATE SODIUM 100 MG GELCAP PO PRN (10:20)
--- NOTE | 2018-08-29 10:20 | NUR ---
ER MD ZARATE VERIFIED NG TUBE PLACEMENT AT THIS TIME VIA XRAY
[2018-08-29] MEDS: DEXT 5% / NACL 0.45% 1,000 ML IV SCH ×2 (10:25→20:40)
[2018-08-29] MEDS ORDERED: MORPHINE SULFATE 4 MG/ML SYR IVP PRN (10:30)
--- NOTE | 2018-08-29 10:50 | NUR ---
Patient will be admitted to care of DR. VIVEROS . Admited to TELE . Will go to room 119B . Belongings list completed. Report to ARTIE BRIDGES .
--- NOTE | 2018-08-29 10:50 | NUR ---
RECEIVED REPORT FORM ER NURSE. PT ADMITTED WITH DX OF SMALL BOWEL OBSTRUCTION. CC IS ABDOMINAL PAIN. SKIN IS INTACT. PT HAS NG TUBE, IS ON LOW INTERMITTENT SUCTION. LAS LFT AC 22 G, D5-0.45 NS INFUSING AT 100 ML/HR. MRSA NARES OBTAINED. UGANDAN SPEAKING, UNDERSTANDS MAORI. CALL LIGHT WITHIN PT REACH. NO SIGN OF DSITRESS NOTED. PT TO BE ON NPO. WILL CONTINUE TO MONITOR PT.VS WITHIN NORMAL RANGE.
[2018-08-29 12:15] LABS: MAGNESIUM 2.1 mg/dL (1.8-2.4); PHOSPHORUS 3.7 mg/dL (2.5-4.9)
[2018-08-29 12:16] LABS: CHOL/HDL RATIO 4.2 (1-4.5); THYROID STIMULATING HORMONE 0.99 uIU/mL (0.34-3.74)
[2018-08-29 12:17] LABS: PROTHROMBIN TIME 9.9 secs (10.8-13.4)
--- NOTE | 2018-08-29 13:36 | NUR ---
CHECKED ON PT. SLEEPING COMFORTABLY IN HIS BED. NO SIGN OF DISTRESS NOTED, PT ON NG TIBE, INTERMITTENT LOW SUCTION. CALL LIGHT WITHIN REACH. WILL CONTINUE TO MONITOR PT.
--- NOTE | 2018-08-29 15:24 | NUR ---
ADMINISTERED CONTRAST LIQUID FROM PT NG TUBE. TOLERATED WELL. NG TUBE IS PATENT AND INTACT. RN CARDIAC REHAB AT BEDSIDE. STATES WILL FINISH CONTRAST EXAM AT 2100. ASKED TO TURN OFF SUCTION OFF TILL THE XRAY IS DONE. PT TO SIT UP FOR 15 MIN. NO SIGN OF DISTRESS NOTED. WILL CONTINUE TO MONITOR PT.
[2018-08-29 16:00] VITALS: BP 134/82
--- NOTE | 2018-08-29 16:34 | NUR ---
CHECKED ON PT. LYING COMFORTABLY ON HIS BED. NO SIGN OF DISTRESS NOTED. PT HAS NG TUBE, PATENT AND INTACT. ALL SAFETY MEASURE IN PLACE. DENIES ANY ABDOMINAL PAIN. INFORMED DR DELANEY THAT Xormis WANTS THE NG SUCTION TO BE OFF. VERBALIZED UNDERSTANDING. CALL LIGHT WITHIN PT REACH. WILL CONTINUE TO MONITOR PT.
[2018-08-29 18:21] LABS: BARBITURATE, URINE NEG. ng/ml (NEG <=200); BENZODIAZEPINE, URINE NEG. ng/mL (NEG <=200); CANNABINOID, URINE NEG. ng/mL (NEG <=50); COCAINE, URINE NEG. ng/mL (NEG <=300); OPIATE, URINE NEG. ng/mL (NEG <=2000); PHENCYCLIDINE SCREEN,URINE NEG. ng/mL (NEG <=25)
--- NOTE | 2018-08-29 19:10 | NUR ---
ENDORSED PT TO PM NURSE AT BEDSIDE. PT IN STABLE CONDITION.
--- NOTE | 2018-08-29 19:15 | NUR ---
RECEIVED PT SLEEPING, EASILY AROUSABLE, VITAL SIGNS STABLE, DENIES PAIN, WITH NGT IN PLACE, SUCTION HOLD FOR NOW DUE TO ON-GOING SBFT, NO GASTRIC OUTPUT NOTED, IVF INFUSING WELL, SAFETY MEASURES IN PLACE, CALL LIGHT WITHIN REACH.
[2018-08-29 20:00] VITALS: BP 112/75
--- NOTE | 2018-08-29 21:25 | NUR ---
LAST X-RAY FOR SBFT TAKEN, RESUMED NGT TO LOW INTERMITTENT SUCTION, ALL NEEDS ATTENDED.
--- NOTE | 2018-08-29 23:30 | NUR ---
PT SLEEPING, EASILY AROUSABLE, VITAL SIGNS STABLE, DENIES ANY PAIN, NGT TO LOW INTERMITTENT SUCTION WITH MODERATE CLEAR YELLOW DRAINAGE NOTED, IVF INFUSING WELL, CONTINUE TO MONITOR CLOSELY.
[2018-08-30] VITALS: BP 116/72
[2018-08-30 04:00] VITALS: BP 124/75
--- NOTE | 2018-08-30 04:00 | NUR ---
PT SLEEPING, EASILY AROUSABLE, VITAL SIGNS STABLE, DENIES PAIN, NGT CONTINUE ON LOW INTERMITTENT SUCTION WITH YELLOW DRAINAGE, MONITORED CLOSELY.
--- NOTE | 2018-08-30 06:24 | NUR ---
NGT DISCONTINUED ORDERED WITH TOTAL NGT OUTPUT OF 200ML YELLOW DRAINAGE, DENIES ANY PAIN, IVF INFUSING WELL, MONITORED CLOSELY.
[2018-08-30] MEDS: DEXT 5% / NACL 0.45% 1,000 ML IV SCH (06:38)
--- NOTE | 2018-08-30 07:15 | NUR ---
PT SLEEPING, NO DISTRESS NOTED, REPORT GIVEN TO RN SITAL FOR CONTINUITY OF CARE.
--- NOTE | 2018-08-30 07:16 | NUR ---
RECEIVED REPORT FROM PM NURSE AT BEDSIDE. PT LYING ON HIS BED. DISCONTINUED NG TUBE BY PM NURSE ORDERED. PT DENIES ANY PAIN OR DISCOMFORT. PT STILL NPO STATUS. NO SIGN OF DISTRESS NOTED. [id number] HEMANT LIGHT WITHIN PT REACH. INFORMED HIM TO USE CALL LIGHT FOR ANY HELP . PT ASKING I HE CAN EAT. INFORMED THAT , WILL PUT ORDER ONCE THEY MAKE ROUND. VERBALIZED UNDERSTANDING. WILL CONTINUE TO MONITOR PT.
[2018-08-30 07:44] LABS: BASOPHILS % (AUTO) 0.3 % (0.0-2.0); EOSINOPHILS # (AUTO) 0.1 K/uL (0-0.4); EOSINOPHILS % (AUTO) 1.3 % (0.0-4.0); HEMATOCRIT 40.5 % (36-52); HEMOGLOBIN 13.6 g/dL (12.0-18.0); LYMPHOCYTES # (AUTO) 1.6 K/uL (2.0-11.5); LYMPHOCYTES % (AUTO) 41.7 % (20.5-51.1); MEAN CORPUSCULAR HEMOGLOBIN 30 pg (27-31); MEAN CORPUSCULAR HGB CONC 34 g/dL (33-37); MEAN CORPUSCULAR VOLUME 89.6 fL (80-94); MONOCYTES # (AUTO) 0.3 K/uL (0.8-1.0); MONOCYTES % (AUTO) 6.8 % (1.7-9.3); NEUTROPHILS % (AUTO) 49.9 % (42.2-75.2); PLATELET COUNT (AUTO) 150 K/uL (140-450); RED BLOOD CELL COUNT(AUTO) 4.52 MIL/uL (4.20-6.10); RED CELL DISTRIBUTION WIDTH 13.3 % (11.6-13.7)
[2018-08-30 08:09] VITALS: BP 117/75
--- NOTE | 2018-08-30 08:30 | NUR ---
CHECKED ON PT. IS ON CLEAR LIQUID DIET. BREAKFAST TRAY FOR PT BEDSIDE.. PT LYING ON HIS , EATING HIS BREAKFAST. NO SIGN OF DISTRESSED . WILL CONTINUE TO MONITOR PT.
[2018-08-30 08:39] LABS: ANION GAP 11.5 (8-16); CARBON DIOXIDE 27.3 mmol/L (21-32); CREATININE 0.9 mg/dL (0.7-1.3); POTASSIUM 3.8 mmol/L (3.5-5.1)
--- NOTE | 2018-08-30 11:03 | NUR ---
CHECKED ON PT. PT LYING ON HIS BED, WATCHING TV. NO SIGN OF DISTRESS NOTED. CALL LIGHT WITHIN PT REACH. WILL CONTINUE TO MONITOR PT.
--- NOTE | 2018-08-30 12:22 | NUR ---
PATIENT HAS BEEN SCREENED AND CATEGORIZED HIGH NUTRITION RISK. PATIENT WILL BE SEEN WITHIN 1-2 DAYS OF ADMISSION. 08/30/18 08/31/18 LUIS JAIN MBA, RD
--- NOTE | 2018-08-30 12:38 | NUR ---
PT ON FULL LIQUID DIET. PT OFFERED WITH FULL LIQUID DIET. EDUCATED HIM TO TAKE SLOWLY FOOD , WILL OBSERVE IF PT CAN TOLERATE FOOD WELL. DR DELANEY AT BEDSIDE, EXPLAINING PT. NO SIGN OF DISTRESS .WILL CONTINUE TO MONITOR PT.
[2018-08-30] MEDS ORDERED: METOCLOPRAMIDE 10 MG/2 ML INJ VIAL IVP PRN (14:30)
--- NOTE | 2018-08-30 15:00 | NUR ---
CHECKED ON PT. LYING ON HIS BED. ADMINISTERED MEDS ORDERED TO PT. INFORMED THAT HIS DIET IS CHANGED TO REGULAR , WILL HAVE REGULAR DIET FOR DINNER. PT DENIES PAIN. NO SIGN OF DISTRESS NOTED. WILL CONTINUE TO MONITOR PT.
[2018-08-30] MEDS: NACL 0.9% 1,000 ML IV SCH (15:13)
[2018-08-30 16:00] VITALS: BP 130/67
--- NOTE | 2018-08-30 18:00 | NUR ---
CHECKED ON PT. UP ON HIS BED, EATING HIS DINNER. INFORMED HIM TO EAT SLOWLY AND INFORM IF HE CANNOT TOLERATE FOOD WELL. DENIES ANY VOMITING , ANY ABD VAUGHN. WILL CONTINUE TO MONITOR TOLERANCE OF FOOD. INFORMED HIM TO CALL FOR ANY DISCOMFORT REGARDING FOOD. VERBALIZED UNDERSTANDING. WILL CONTINUE TO MONITOR PT.
--- NOTE | 2018-08-30 19:16 | NUR ---
ENDORSED PT OT PM NURSE AT BEDSIDE. PT IN STABLE CONDITION.
--- NOTE | 2018-08-30 19:18 | NUR ---
RECEIVED PT AWAKE, VITAL SIGNS STABLE, DENIES ANY PAIN, TOLERATING REGULAR DIET, NO NAUSEA NOTED, IVF INFUSING WELL, PLAN OF CARE DISCUSSED, CALL LIGHT WITHIN REACH.
--- NOTE | 2018-08-30 20:40 | NUR ---
DUE MEDICATION ADMINISTERED WITH EDUCATION PROVIDED, DENIES PAIN, VOIDING FREELY PER URINAL, ALL NEEDS ATTENDED.
[2018-08-30] MEDS ORDERED: ATORVASTATIN 20 MG TAB PO SCH (21:00)
--- NOTE | 2018-08-30 23:48 | NUR ---
PT SLEEPING, EASILY AROUSABLE, VITAL SIGNS STABLE, DENIES ANY PAIN, IVF INFUSING WELL, CONTINUE TO MONITOR CLOSELY.
[2018-08-31] VITALS: BP 109/72
--- NOTE | 2018-08-31 04:20 | NUR ---
ROUNDS MADE, PT SLEEPING, NO SIGNS OF DISTRESS, IVF INFUSING WELL, MONITORED CLOSELY.
[2018-08-31] MEDS: NACL 0.9% 1,000 ML IV SCH (07:03)
--- NOTE | 2018-08-31 07:10 | NUR ---
PT AWAKE, NO DISTRESS NOTED, REPORT GIVEN TO RN SITAL FOR CONTINUITY OF CARE.
[2018-08-31 08:36] VITALS: BP 127/73
--- NOTE | 2018-08-31 09:30 | NUR ---
CHECKED ON PT . LYING ON HIS BED AND WATCHING TV. DENIES ANY PAIN. NO SIGN OF DISTRESS NOTED. MIGHT BE DC TODAY. WILL CONTINUE TO MONITOR PT.
[2018-08-31] MEDS ORDERED: LUBI24SG4 PO (11:35)
[2018-08-31] MEDS ORDERED: METO-485 PO (11:35)
--- NOTE | 2018-08-31 12:00 | NUR ---
CHECKED ON PT. LYING ON HIS BED, WATCHING TV. NO SIGN OF DISTRESS NOTED . PT STATES OF HAVING BM X2. WILL CONTINUE TO MONITOR PT.
[2018-08-31] MEDS ORDERED: ATOR20TA40 PO (12:50)
--- NOTE | 2018-08-31 14:45 | NUR ---
DISCHARGED PT TO HOME. PRESCRIPTION AND MD NOTED FOR WORK PROVIDED. PAPER FOR CONSULT AND APPOINTMENT GIVEN WITH PT PACKET TO PT. DR DELANEY DISCUSSED DC PLAN WITH PT. INFORMED HIM TO TRAKE PAPER TO COMMUNITY ARTIST WHILE HE VISITS GI DOCTOR, NOTES PROVIDED BY MD. VERBALIZED UNDERSTANDING. PT WENT HOME BY HIMSELF AND WAS IN STABLE CONDITION.
== END 2018-08-31 14:45 | disposition home or self-care (01) | DRG 392 ==
LOC: MED 05:01 → MTU 09:33
PROVIDERS: ADMIT General Practice; ATTEND General Practice
DX: K44.9 Diaphragmatic hernia without obstruction or gangrene (principal); K57.90 Diverticulosis of intestine, part unspecified, without perforation or abscess without bleeding; E78.5 Hyperlipidemia, unspecified; K52.9 Noninfective gastroenteritis and colitis, unspecified; Z79.899 Other long term (current) drug therapy; Z83.3 Family history of diabetes mellitus; Z80.42 Family history of malignant neoplasm of prostate; R73.9 Hyperglycemia, unspecified
CPT/HCPCS: 36415; 71045; 74018; 74250; 80048; 80053; 80305; 81003; 82150; 83036; 83690; 83735; 83880; 84100; 84134; 84443; 85025; 85610; 85730; 87081; 96361; 96374; 96375; 99291; J2270; J2405; J7030; Q0092